=== PATIENT | male | born 1965 | race Caucasian/White ===

== ENCOUNTER 2019-03-16 08:59 | Day surgery (SDC) | payer BC ==
[2019-03-13 10:09] VITALS: BMI 28.8
[~2019-03-16 08:59] MED LIST: LACTATED RINGERS 1,000 ML IV SCH
[2019-03-16 09:18] VITALS: TEMP 97.6
[2019-03-16] MEDS ORDERED: LIDOCAINE 1% 20 ML VIAL (10MG/ML) FOR IV START INTRADERMA ONE (09:21)
--- NOTE | 2019-03-16 09:48 | P.GSHP ---
History of Present Illness H&P Date: 03/16/19 Chief Complaint: Screening colonoscopy This a 53-year-old male referred from Dr. Almaz lea. Patient presents today for screening colonoscopy. Denies a significant GI complaints. Past Medical History Past Medical History: Hyperlipidemia, Hypertension, Thyroid Disorder History of Any Multi-Drug Resistant Organisms: None Reported Past Surgical History: No Surgical Hx Reported Additional Past Surgical History / Comment(s): "Kidney exam." Past Anesthesia/Blood Transfusion Reactions: No Reported Reaction Past Psychological History: No Psychological Hx Reported Smoking Status: Former smoker Past Alcohol Use History: Occasional Additional Past Alcohol Use History / Comment(s): Quit smoking in 2011. Past Drug Use History: Marijuana Additional Drug Use History / Comment(s): Weekly Marijuana use, aware no use 24 hrs prior to procedure. - Past Family History Mother Family Medical History: No Reported History Medications and Allergies Home Medications Medication Instructions Recorded Confirmed Type Levothyroxine Sodium [Synthroid] 50 mcg PO QAM 02/04/14 03/16/19 History Lisinopril [Zestril] 10 mg PO HS 03/13/19 03/16/19 History Simvastatin [Zocor] 20 mg PO HS 03/13/19 03/16/19 History Allergies Allergy/AdvReac Type Severity Reaction Status Date / Time No Known Allergies Allergy Verified 03/13/19 10:11 Surgical - Exam Vital Signs Temp Pulse Resp BP Pulse Ox 97.6 F 119 H 16 197/95 97 03/16/19 09:14 03/16/19 09:14 03/16/19 09:14 03/16/19 09:14 03/16/19 09:14 - General well developed, well nourished, no distress - Eyes PERRL - ENT normal pinna - Neck no masses - Respiratory normal expansion - Cardiovascular Rhythm: regular - Abdomen Abdomen: soft, non tender Assessment and Plan Assessment: We'll perform screening colonoscopy.
[2019-03-16] MEDS ORDERED: PROPOFOL 10 MG/ML 20 ML VIAL IV ONE (09:52)
--- NOTE | 2019-03-16 10:13 | P.OP ---
Date of Procedure: 03/16/19 Preoperative Diagnosis: Screening colonoscopy Postoperative Diagnosis: Right colon polyp Left colon polyp Diverticulosis Procedure(s) Performed: Colonoscopy Anesthesia: MAC Surgeon: Kei Canada Pathology: other (Right colon polyp, left colon polyp) Condition: stable Disposition: PACU Description of Procedure: The patient's placed on the endoscopy table lateral position. He received IV sedation. Digital rectal exam was performed which revealed no endovascular. The prostate was symmetric without nodules. The possible colonoscope was then placed patient anus passed rotator entire colon. The ileocecal valve was visually. Cecum appeared normal. In the right colon was small polyp seen this is removed with the snare. Scope was then brought back and the remainder the ascending colon and transverse colon appeared normal. In the descending colon there is another polyp seen this removed with the snare and cold forcep. In the descending and sigmoid colon there was diverticular changes seen. There is known to diverticulitis. Scope was then brought back the rectum and this appeared normal. Scope withdrawn for patient.
[2019-03-16 11:18] VITALS: BP 150/76; PULSE 90; RESP 20
== END 2019-03-16 10:47 | disposition home or self-care (01) ==
LOC: ORWHC2ENDO 08:59
PROVIDERS: ATTEND Surgery
DX: Z12.11 Encounter for screening for malignant neoplasm of colon (principal); D12.2 Benign neoplasm of ascending colon; K63.5 Polyp of colon; K57.90 Diverticulosis of intestine, part unspecified, without perforation or abscess without bleeding; K57.92 Diverticulitis of intestine, part unspecified, without perforation or abscess without bleeding; E78.5 Hyperlipidemia, unspecified; I10 Essential (primary) hypertension; E07.9 Disorder of thyroid, unspecified; Z87.891 Personal history of nicotine dependence; Z79.890 Hormone replacement therapy; Z79.899 Other long term (current) drug therapy
CPT/HCPCS: 88305; 45385; J2704

== ENCOUNTER → 2019-06-30 | Outpatient (CLI) | payer BC ==
--- NOTE | 2019-06-30 10:20 | NM ---
EXAMINATION TYPE: NM stress cardiolite complete DATE OF EXAM: 06/30/2019 COMPARISON: NONE HISTORY: Chest pain TECHNIQUE: After the intravenous administration of 10.1 mCi Tc 99m Sestamibi - Rest images obtained 50 minutes post injection. The patient exercised using a ESSIE protocol and 1 minute prior to peak exercise was injected with 25.9 mCi Tc 99m Sestamibi - Stress images obtained 20 minutes post injecti on. FINDINGS: Targeted heart rate was achieved during performance of the study. Review of stress and rest SPECT patty ges demonstrates no distinct perfusion abnormality. Gated analysis shows normal wall motion with an estimated left ventricular ejection fraction of 67 %. IMPRESSION: No scintigraphic evidence for reversible ischemia
--- NOTE | 2019-06-30 12:54 | EST ---
EXERCISE STRESS AGE: 53 SEX: M HT: 5'9" WT: 195 PROTOCOL: Cardiolite Nhan Stress Test STAGE: 2 DURATION OF EXERCISE: 6:00 HEART RATE REST: 85 BLOOD PRESSURE REST: 147/85 MAXIMUM HEART RATE ACHIEVED: 163 MAXIMUM BLOOD PRESSURE: 210/91 85% MPHR: 141 100% MPHR: 166 METS: 7.1 INDICATIONS: Chest pain. CLINICAL INFORMATION: Baseline EKG revealed normal sinus rhythm without significant ST-T changes. Patient walked on a standard Nhan protocol for 6 minutes, achieved a maximal heart rate of 160 beats per minute which is more than 85% of predicted maximal. Developed fatigue, shortness of breath but did not have any angina. EKG did not reveal any ST-segment changes to indicate ischemia. By EKG criteria, this is a negative stress test with limited exercise capacity. The nuclear scan results which are more pertinent will be reported by the radiologist. RASHIDA / CARLYN: [id number] /
== END | disposition home or self-care (01) ==
LOC: RADNMMAIN 07:51
PROVIDERS: ATTEND Family Medicine
DX: R07.9 Chest pain, unspecified (principal)
CPT/HCPCS: 93017; 78452; A9500

== ENCOUNTER 2024-06-12 12:22 | Day surgery (SDC) | payer BC, OTHER ==
[2024-06-07 15:47] VITALS: BMI 27.3
[~2024-06-12 12:22] MED LIST changes: -LACTATED RINGERS 1,000 ML IV SCH; +LIDOCAINE 1% (10MG/ML) FOR IV START INTRADERMA PRN
[2024-06-12] MEDS: IV FLUID CONTINUATION 1,000 ML IV ONE (13:02)
[2024-06-12 13:06] VITALS: TEMP 98.2
[2024-06-12] MEDS: LACTATED RINGERS 1,000 ML IV SCH (13:09)
[2024-06-12] MEDS ORDERED: PROPOFOL 10 MG/ML 20 ML VIAL IV ONE (14:28)
--- NOTE | 2024-06-12 14:32 | P.GSHP ---
History of Present Illness H&P Date: 06/12/24 Chief Complaint: Screening colonoscopy Is a 58-year-old male presents today for screening colonoscopy. Patient denies any significant GI complaints. Past Medical History Past Medical History: Hyperlipidemia, Hypertension, Thyroid Disorder History of Any Multi-Drug Resistant Organisms: None Reported Past Surgical History: No Surgical Hx Reported Additional Past Surgical History / Comment(s): "Kidney exam." COLONOSCOPY Past Anesthesia/Blood Transfusion Reactions: No Reported Reaction Smoking Status: Former smoker - Past Family History Mother Family Medical History: No Reported History Medications and Allergies Home Medications Medication Instructions Recorded Confirmed Type Levothyroxine Sodium [Synthroid] 50 mcg PO QAM 02/04/14 06/12/24 History Simvastatin [Zocor] 20 mg PO HS 03/13/19 06/12/24 History lisinopriL [Zestril] 10 mg PO HS 03/13/19 06/12/24 History Allergies Allergy/AdvReac Type Severity Reaction Status Date / Time No Known Allergies Allergy Verified 06/12/24 13:00 Surgical - Exam Vital Signs Temp Pulse Resp BP Pulse Ox 98.2 F 108 H 16 156/82 98 06/12/24 13:05 06/12/24 13:05 06/12/24 13:05 06/12/24 13:05 06/12/24 13:05 - General well developed, well nourished, no distress - Eyes PERRL - ENT normal pinna - Neck no masses - Respiratory normal expansion - Cardiovascular Rhythm: regular - Abdomen Abdomen: soft, non tender Assessment and Plan Assessment: Will perform screening colonoscopy
--- NOTE | 2024-06-12 14:48 | P.OP ---
Date of Procedure: 06/12/24 Preoperative Diagnosis: Screening colonoscopy Postoperative Diagnosis: Diverticulosis Procedure(s) Performed: Colonoscopy Anesthesia: MAC Surgeon: Kei Canada Pathology: none sent Condition: stable Disposition: PACU Description of Procedure: The patient was placed on the endoscopy table in the lateral position. He received IV sedation. Digital rectal exam was performed this revealed no abnormalities. The flexible colonoscope was then placed patient anus. Passed throughout the entire colon. The ileocecal valve visualized. The cecum, ascending and transverse colon appeared normal. In the descending sigmoid colon there is moderate diverticular changes. The scope was brought back to the re ctum this appeared normal. Scope withdrawn for the patient.
[2024-06-12 15:08] VITALS: BP 141/80; PULSE 84; RESP 16
== END 2024-06-12 15:27 | disposition home or self-care (01) ==
LOC: ORWHC2ENDO 12:22
PROVIDERS: ATTEND Surgery
DX: Z12.11 Encounter for screening for malignant neoplasm of colon (principal); E78.5 Hyperlipidemia, unspecified; I10 Essential (primary) hypertension; E07.9 Disorder of thyroid, unspecified; Z79.890 Hormone replacement therapy; Z79.899 Other long term (current) drug therapy; Z87.891 Personal history of nicotine dependence
CPT/HCPCS: J2704; G0121; 45378